=== PATIENT | female | born 1985 | race Caucasian/White ===

== ENCOUNTER → 2016-09-01 | Outpatient (CLI) | payer OTHER ==
[~2016-09-01] MED LIST: BCPILLS PO
--- NOTE | 2016-09-01 14:44 | DIAGNOSTIC IMAGING REPORT ---
CT ANGIOGRAM OF THE CHEST CLINICAL HISTORY: Dyspnea. Fatigue. COMPARISON STUDY: Chest x-ray dated 04/03/2014. TECHNIQUE: Following the IV administration of 92 cc of Optiray 320, CT angiogram of the chest was performed from the upper abdomen to the thoracic inlet utilizing the pulmonary embolus protocol. Images are reviewed in the axial, sagittal, and coronal planes. 3-D MIPS images are created and assessed. IV contrast was administered without complication. CT DOSE: 178.87 mGy.cm FINDINGS: Thyroid: Imaged portions of the thyroid gland are normal in size and attenuation. Thoracic aorta: The thoracic aorta is normal in caliber and demonstrates standard 3-vessel arch anatomy. No dissection is seen. Pulmonary vasculature: The pulmonary trunk is normal in caliber. There are no filling defects identified in main, lobar, or segmental pulmonary branches to suggest pulmonary embolus. Heart: The heart is normal in size and configuration, and without pericardial effusion. Lungs and pleural spaces: Evaluation of the lung parenchyma is modestly degraded by a part ring motion artifact. The lungs and pleural spaces are clear. The trachea and central airways are patent. Mediastinum: There is no mediastinal lymphadenopathy. Sandra: Clear. Axillae: There is no axillary lymphadenopathy. Upper abdomen: Partially visualized upper abdominal viscera is within normal limits. Skeletal structures: No lytic or blastic bony lesions are seen. IMPRESSION: 1. There is no evidence of pulmonary embolus in the main, lobar, or segmental pulmonary arteries. 2. The lungs are clear. Electronically signed by: José Miguel Vale M.D. 09/01/2016 2:43 PM Dictated Date/Time: 09/01/2016 2:41 PM
[2016-09-01 15:28] LABS: BASO % 0.1 %; BASO ABS # 0.01 K/uL (0-0.2); COMPLETE YES; HEMATOCRIT 41.5 % (37-47); IG% 0.2 %; LYMPH ABS # 0.85 K/uL (1.2-3.4); MEAN CELL VOLUME 88.5 fL (80-100); MEAN CORPUSCULAR HEMOGLOBIN 30.3 pg (25-34); MEAN CORPUSCULAR HGB CONC 34.2 g/dl (32-36); MEAN PLATELET VOLUME 9.8 fL (7.4-10.4); MONO % 0.4 %; NEUT % 89.3 %; PLATELET COUNT 450 K/uL (130-400); RED BLOOD COUNT 4.69 M/uL (4.2-5.4); WHITE BLOOD COUNT 8.53 K/uL (4.8-10.8)
[2016-09-01 15:39] LABS: ALT/SGPT 18 U/L (12-78); AST/SGOT 14 U/L (15-37); BLOOD UREA NITROGEN 11 mg/dl (7-18); BUN/CREATININE RATIO 14.3 (10-20); CALCIUM 8.8 mg/dl (8.5-10.1); CARBON DIOXIDE 26 mmol/L (21-32); CHLORIDE 103 mmol/L (98-107); CREATININE 0.79 mg/dl (0.60-1.20); GLUCOSE 187 mg/dl (70-99); SODIUM 140 mmol/L (136-145)
[2016-09-01 15:50] LABS: ALKALINE PHOSPHATASE 64 U/L (45-117); THYROID STIMULATING HORMONE 0.381 uIu/ml (0.300-4.500)
[2016-09-04 13:59] LABS: EBV EARLY ANTIGEN AB <0.91 INDEX; EPSTEIN BARR VIR CAPSID IGG <0.91 INDEX
== END | disposition home or self-care (01) ==
LOC: C.CTS 14:06
PROVIDERS: ATTEND Internal Medicine
DX: R06.02 Shortness of breath (principal); R53.83 Other fatigue

== ENCOUNTER → 2016-09-18 | Outpatient (CLI) | payer OTHER ==
--- NOTE | 2016-09-18 16:30 | ECHOCARDIOGRAM REPORT ---
*NOTICE TO RECEIVING [employer] This information is strictly Confidential and protected under [place] law. [place] law prohibits you from making any further disclosure of this information unless further disclosure is expressly permitted by the written consent of the person to whom it pertains or is authorized by law. A general authorization for the release of medical or other information is not sufficient for this purpose. Hospital accepts no responsibility if the information is made available to any other person, INCLUDING THE PATIENT. Interpretation Summary * Name: CLAUDIA ELIZABETH Study Date: 09/18/2016 01:47 PM BP: 116/66 mmHg * Patient Location: [facility] HR: 64 * : 1985 (M/d/yyyy) Gender: Female Height: 65 in * Age: 31 yrs Ethnicity: CA Weight: 113 lb * Ordering Physician: Greg Rasmussen * Referring Physician: Greg Rasmussen * Performed By: Gianluca Richards RCS * * Reason For Study: Heart Murmur * BSA: 1.6 m2 * Normal transthoracic echocardiogram. * -- Conclusions -- * Left ventricular systolic function is normal. Procedure Details * A complete two-dimensional transthoracic echocardiogram was performed (2D, M-mode, Doppler and color flow Doppler). Left Ventricle * The left ventricle is normal in size. * There is normal left ventricular wall thickness. * Ejection Fraction = 60-65%. * Left ventricular systolic function is normal. * The left ventricular wall motion is normal. Right Ventricle * The right ventricle is normal in size and function. Atria * The left atrial size is normal. * Right atrial size is normal. Mitral Valve * The mitral valve is grossly normal. * There is no mitral regurgitation noted. Tricuspid Valve * The tricuspid valve is not well visualized, but is grossly normal. * There is trace tricuspid regurgitation. * Right ventricular systolic pressure is normal. Aortic Valve * The aortic valve is tricuspid. The leaflet thickness if normal. There is no aortic stenosis, and no significant insufficiency. * No hemodynamically significant valvular aortic stenosis. * There is no significant aortic regurgitation. Great Vessels * The aortic root and proximal ascending aorta are normal sized. Pericardium/Pleural * There is no pericardial effusion. Left Ventricular Diastolic Function * Normal MMode 2D Measurements and Calculations IVSd 0.74 cm IVSs 0.99 cm LVIDd 4.3 cm LVIDs 2.9 cm LVPWd 0.65 cm LVPWs 0.93 cm IVS/LVPW 1.1 FS 32.2 % EDV(Teich) 84.7 ml ESV(Teich) 33.3 ml EF(Teich) 60.6 % EDV(cubed) 81.5 ml ESV(cubed) 25.4 ml EF(cubed) 68.8 % % IVS thick 34.2 % % LVPW thick 42.5 % LV mass(C)d 88.9 grams LV mass(C)dI 57.3 grams/m\S\2 LV mass(C)s 75.0 grams LV mass(C)sI 48.3 grams/m\S\2 SV(Teich) 51.3 ml SI(Teich) 33.1 ml/m\S\2 SV(cubed) 56.0 ml SI(cubed) 36.1 ml/m\S\2 Ao root diam 3.2 cm Ao root area 8.0 cm\S\2 ACS 1.6 cm LA dimension 2.3 cm LA/Ao 0.71 LVAd ap4 31.1 cm\S\2 LVLd ap4 8.9 cm EDV(MOD-sp4) 92.0 ml EDV(sp4-el) 92.2 ml LVAs ap4 17.2 cm\S\2 LVLs ap4 7.5 cm ESV(MOD-sp4) 33.6 ml ESV(sp4-el) 33.7 ml EF(MOD-sp4) 63.4 % EF(sp4-el) 63.5 % LVAd ap2 31.7 cm\S\2 LVLd ap2 9.0 cm EDV(MOD-sp2) 94.5 ml EDV(sp2-el) 94.2 ml LVAs ap2 18.0 cm\S\2 LVLs ap2 7.3 cm ESV(MOD-sp2) 39.4 ml ESV(sp2-el) 38.0 ml EF(MOD-sp2) 58.4 % EF(sp2-el) 59.7 % LVLd %diff 1.6 % EDV(MOD-bp) 94.2 ml LVLs %diff -3.15 % ESV(MOD-bp) 36.8 ml EF(MOD-bp) 61.0 % SV(MOD-sp4) 58.3 ml SI(MOD-sp4) 37.6 ml/m\S\2 SV(MOD-sp2) 55.1 ml SI(MOD-sp2) 35.5 ml/m\S\2 SV(MOD-bp) 57.4 ml SI(MOD-bp) 37.0 ml/m\S\2 SV(sp4-el) 58.5 ml SI(sp4-el) 37.7 ml/m\S\2 SV(sp2-el) 56.2 ml SI(sp2-el) 36.2 ml/m\S\2 Doppler Measurements and Calculations MV E max magali 67.6 cm/sec MV A max magali 60.4 cm/sec MV E/A 1.1 MV P1/2t max magali 90.2 cm/sec MV P1/2t 63.9 msec MVA(P1/2t) 3.4 cm\S\2 MV dec slope 413.2 cm/sec\S\2 MV dec time 0.19 sec PA V2 max 81.1 cm/sec PA max PG 2.6 mmHg TR max magali 199.4 cm/sec
== END | disposition home or self-care (01) ==
LOC: C.CPL 12:39
PROVIDERS: ATTEND Internal Medicine
DX: R01.1 Cardiac murmur, unspecified (principal)

== ENCOUNTER → 2016-11-02 | Outpatient (CLI) | payer OTHER | END | disposition home or self-care (01) | LOC: C.PAPS 10:14 | PROVIDERS: ATTEND Obstetrics & Gynecology | DX: Z12.4 Encounter for screening for malignant neoplasm of cervix (principal) ==

== ENCOUNTER → 2016-12-22 | Outpatient (CLI) | payer OTHER ==
[2016-12-22 10:39] LABS: ESTIMATED AVERAGE GLUCOSE 97 mg/dl; HA1C FLAG Normal (Normal)
== END | disposition home or self-care (01) ==
LOC: C.LAB1850 07:24
PROVIDERS: ATTEND Internal Medicine
DX: R73.9 Hyperglycemia, unspecified (principal)